=== PATIENT | female | born 1975 | race Caucasian/White ===

== ENCOUNTER 2020-08-14 13:03 | Emergency (ER) | payer OTHER ==
[2020-08-14 13:18] VITALS: BP 143/98; PULSE 78; TEMP 99; BMI 24.0
== END 2020-08-14 13:58 | disposition home or self-care (01) ==
LOC: FER 13:03
DX: S63.635A Sprain of interphalangeal joint of left ring finger, initial encounter (principal); X50.9XXA Other and unspecified overexertion or strenuous movements or postures, initial encounter
CPT/HCPCS: 73130-TC-LT-FY; 99283-25